=== PATIENT | male | born 1950 | race Caucasian/White ===

== ENCOUNTER 2022-06-21 11:51 | Emergency (ER) | payer OTHER, SELFPAY ==
[2022-06-21] VITALS (11 sets, daily range): BP systolic 158–159; BP diastolic 92–100; PULSE 62–70; RESP 12–24; TEMP 37; O2SAT 92–98; BMI 28.8
[2022-06-21 12:28] LABS: Add Manual Diff / Slide Review NO; Basophils Absolute Auto 100 /uL (0-100); Basophils Percent Auto 1.2 % (0-2); Eosinophils Absolute Auto 200 /uL (0-450); Eosinophils Percent Auto 4.6 % (2-4); Hematocrit 42.3 % (41-53); Hemoglobin 14.3 g/dL (13.5-17.5); Lymphocytes Absolute Auto 700 /uL (1100-4500); Lymphocytes Percent Auto 13.7 % (25-40); Mean Corpuscular HGB Conc 33.7 % (30-36); Mean Corpuscular Hemoglobin 32.1 PG (26-34); Mean Corpuscular Volume 95.3 fL (80-100); Monocytes Absolute Auto 600 /uL (0-900); Monocytes Percent Auto 13.1 % (3-14); Neutrophils Absolute Auto 3300 /uL (1500-7000); Neutrophils Percent Auto 67.4 % (50-75); Platelet Count 172 X10^3/uL (150-400); Red Blood Cell Count 4.44 X10^6/uL (4.5-5.9); Red Cell Distribution Width 15.9 % (11.6-14.8); White Blood Cell Count 4.9 X10^3/uL (4.5-11.0)
[2022-06-21 12:42] LABS: INR 1.1 (0.9-1.3); Prothrombin Time 12.7 SECONDS (10.1-12.7)
[2022-06-21 12:45] LABS: PTT Partial Thromboplastin Tim 38 SECONDS (26-36)
[2022-06-21 12:49] LABS: Alanine Aminotransferase 32 IU/L (<50); Albumin 4.2 g/dL (3.5-5.0); Albumin Globulin Ratio 1.2 (1.0-2.8); Alkaline Phosphatase 65 U/L (38-126); Aspartate Aminotransferase 34 IU/L (17-59); Bilirubin Total 0.6 mg/dL (0.2-1.3); Blood Urea Nitrogen 17 mg/dL (9-20); Calcium 9.1 mg/dL (8.4-10.2); Carbon Dioxide 28 mmol/L (22-32); Chloride 102 mmol/L (98-107); Estimated Glomerular Filt Rate > 60 mL/min (>60); Globulin 3.4 g/dL (1.7-4.1); Glucose 90 mg/dL (80-110); HEMOLYSIS < 15 (0-50); Sodium 139 mmol/L (137-145); Total Protein 7.6 g/dL (6.3-8.2)
--- NOTE | 2022-06-21 13:32 | ED_ITS ---
HPI - GI Bleed General Chief complaint: GI Bleed Stated complaint: gi bleed Time Seen by Provider: 06/21/22 13:31 Source: patient and family Mode of arrival: Ambulatory Limitations: no limitations History of Present Illness HPI Narrative: The patient had bloody BMs this morning x2. He has no weakness, palpitations, diaphoresis or abdominal pain. He is not anticoagulated. He has no history of GI bleeding. He has no history of gastritis, no histories of PUD. He did not have heavy yd work yesterday. He did take ibuprofen yesterday for body ache. He denies recent illness. He is no headache, no chest pain or palpitations. He is no cough or dyspnea. He is no illness with fever chills. He has no abdomin al pain, he is no urinary symptoms. He is currently asymptomatic, worried about the GI bleeding. Related Data Previous Rx's Medication Instructions Recorded pantoprazole 40 mg tablet,delayed 40 mg PO DAILY #30 tabs 06/21/22 release (Protonix) Allergies Allergy/AdvReac Type Severity Reaction Status Date / Time No Known Drug Allergies Allergy Verified 06/21/22 12:00 Review of Systems Review of Systems ROS Unobtainable: All systems reviewed & are unremarkable except as noted in HPI and below Patient History Medical History (Updated 06/21/22 @ 16:23 by Ruiz Mera MD) No chronic diseases present Social History Smoking Status: Former smoker Smoking Status: Former smoker alcohol intake frequency: a few times a week Substance Use Type: marijuana Exam Initial Vital Signs Initial Vital Signs: Vital Signs Temperature 98.6 F 06/21/22 12:00 Pulse Rate 65 06/21/22 12:00 Respiratory Rate 16 06/21/22 12:00 Blood Pressure 159/100 H 06/21/22 12:00 Pulse Oximetry 97 06/21/22 12:00 Oxygen Delivery Method Room Air 06/21/22 12:00 Const General: cooperative, healthy appearing, comfortable, well developed and well groomed Nutritional Appearance: average body habitus Orientation: Orientation (Normal.) HENMT Head: normal to inspection, normocephalic and atraumatic Mouth: oral mucosae normal Neck Thyroid: thyroid normal Chest Chest: normal inspection of the chest Resp Effort & Inspection: normal respiratory effort Auscultation: clear to auscultation bilaterally Cardio Rate: regular rate Rhythm: regular rhythm Heart Sounds: S1 normal, S2 normal and no murmurs GI Inspection: normal to inspection and non-distended Palpation: soft, No mass and No tender Auscultation: normal bowel sounds Rectal Exam: visual inspection normal, normal sphincter tone and prostate normal Other: Melena is present Back/Spine/Pelvis Back: normal to inspection and No CVA tenderness Thoracic/Lumbar Spine: thoracic and lumbar spine normal to inspection Skin General: no rashes or lesions noted Neuro General: patient alert, patient awake, patient oriented x3 and no focal motor deficits Extrem General: normal to inspection, full ROM and no pedal edema Psych Mental Status: mental status grossly normal Course Course Course Narrative: Patient has received IV Protonix. Exam reveals melena. Vitals are stable. He is shown no suggestion of acute GI bleeding. H&H is relatively stable. He probably has NSAID gastritis. He is an upper GI bleed. He is clinically stable, I do not suspect active bleeding. I reviewed the case with surgery, Dr. Jones. He agrees with outpatient follow-up for endoscopy/colonoscopy. Orders Ordered: ED Orders 06/21/22 12:22 Complete Blood Count AUTO DIFF Stat Comprehensive Metabolic Panel Stat Partial Thromboplastin Time Stat Prothrombin Time INR Stat Type and Screen Stat 06/21/22 12:56 EKG-12 Lead Stat 06/21/22 14:30 CBC Auto Diff [Complete Blood Count AUTO DIFF] Stat Discontinued Medications Ondansetron HCl (Ondansetron 4 Mg/2 Ml Inj) 4 mg IV NOW PRN PRN Reason: Nausea And Vomiting Ondansetron HCl (Ondansetron 4 Mg Odt) 4 mg SL NOW PRN PRN Reason: Nausea And Vomiting Pantoprazole Sodium (Pantoprazole 40 Mg Vial) 80 mg IV NOW ONE Stop: 06/21/22 12:07 Last Admin: 06/21/22 13:34 Dose: 80 mg Documented By: NILDA Vital Signs Vital signs: Vital Signs - 8 hr 06/21/22 12:00 06/21/22 13:08 06/21/22 13:09 Temperature 98.6 F Pulse Rate 65 63 Respiratory Rate 16 Blood Pressure 159/100 H 158/92 H Pulse Oximetry 97 97 Oxygen Delivery Method Room Air 06/21/22 13:09 06/21/22 13:30 06/21/22 14:00 Temperature Pulse Rate 62 63 65 Respiratory Rate 12 19 19 Blood Pressure Pulse Oximetry 98 97 96 Oxygen Delivery Method 06/21/22 14:30 06/21/22 15:00 06/21/22 15:30 Temperature Pulse Rate 62 65 69 Respiratory Rate 15 15 24 Blood Pressure Pulse Oximetry 96 96 92 Oxygen Delivery Method 06/21/22 16:00 06/21/22 16:30 06/21/22 16:51 Temperature Pulse Rate 62 68 Respiratory Rate 16 18 Blood Pressure 159/96 H Pulse Oximetry 95 96 Oxygen Delivery Method 06/21/22 16:51 Temperature Pulse Rate 70 Respiratory Rate 21 Blood Pressure Pulse Oximetry 97 Oxygen Delivery Method MDM - GI Bleed Lab Data 06/21/22 14:30 06/21/22 12:22 Labs: Lab Results 06/21/22 06/21/22 06/21/22 Range/Units 12:22 12:22 12:22 WBC 4.9 (4.5-11.0) X10^3/uL RBC 4.44 L (4.5-5.9) X10^6/uL Hgb 14.3 (13.5-17.5) g/dL Hct 42.3 (41-53) % MCV 95.3 (80-100) fL MCH 32.1 (26-34) PG MCHC 33.7 (30-36) % RDW 15.9 H (11.6-14.8) % Plt Count 172 (150-400) X10^3/uL Neut % (Auto) 67.4 (50-75) % Lymph % (Auto) 13.7 L (25-40) % [place] % (Auto) 13.1 (3-14) % Eos % (Auto) 4.6 H (2-4) % Baso % (Auto) 1.2 (0-2) % Neut # (Auto) 3300 (6739-4838) /uL Lymph # (Auto) 700 L (7118-4095) /uL [place] # (Auto) 600 (0-900) /uL Eos # (Auto) 200 (0-450) /uL Baso # (Auto) 100 (0-100) /uL PT 12.7 (10.1-12.7) SECONDS INR 1.1 (0.9-1.3) APTT 38 H (26-36) SECONDS Sodium 139 (137-145) mmol/L Potassium 4.0 (3.4-5.1) mmol/L Chloride 102 (98-107) mmol/L Carbon Dioxide 28 (22-32) mmol/L BUN 17 (9-20) mg/dL Creatinine 0.85 (0.66-1.25) mg/dL Estimated GFR > 60 (>60) mL/min BUN/Creatinine Ratio 20.0 (6-22) Glucose 90 (80-110) mg/dL Calcium 9.1 (8.4-10.2) mg/dL Total Bilirubin 0.6 (0.2-1.3) mg/dL AST 34 (17-59) IU/L ALT 32 (<50) IU/L Alkaline Phosphatase 65 (38-126) U/L Total Protein 7.6 (6.3-8.2) g/dL Albumin 4.2 (3.5-5.0) g/dL Globulin 3.4 (1.7-4.1) g/dL Albumin/Globulin Ratio 1.2 (1.0-2.8) Blood Type Antibody Screen 06/21/22 06/21/22 Range/Units 12:22 14:30 WBC 4.8 (4.5-11.0) X10^3/uL RBC 4.34 L (4.5-5.9) X10^6/uL Hgb 13.9 (13.5-17.5) g/dL Hct 41.0 (41-53) % MCV 94.3 (80-100) fL MCH 32.1 (26-34) PG MCHC 34.0 (30-36) % RDW 15.6 H (11.6-14.8) % Plt Count 167 (150-400) X10^3/uL Neut % (Auto) 68.8 (50-75) % Lymph % (Auto) 13.9 L (25-40) % Bailey % (Auto) 11.7 (3-14) % Eos % (Auto) 4.7 H (2-4) % Baso % (Auto) 0.9 (0-2) % Neut # (Auto) 3300 (3273-2903) /uL Lymph # (Auto) 700 L (1553-5384) /uL Bailey # (Auto) 600 (0-900) /uL Eos # (Auto) 200 (0-450) /uL Baso # (Auto) 0 (0-100) /uL PT (10.1-12.7) SECONDS INR (0.9-1.3) APTT (26-36) SECONDS Sodium (137-145) mmol/L Potassium (3.4-5.1) mmol/L Chloride (98-107) mmol/L Carbon Dioxide (22-32) mmol/L BUN (9-20) mg/dL Creatinine (0.66-1.25) mg/dL Estimated GFR (>60) mL/min BUN/Creatinine Ratio (6-22) Glucose (80-110) mg/dL Calcium (8.4-10.2) mg/dL Total Bilirubin (0.2-1.3) mg/dL AST (17-59) IU/L ALT (<50) IU/L Alkaline Phosphatase (38-126) U/L Total Protein (6.3-8.2) g/dL Albumin (3.5-5.0) g/dL Globulin (1.7-4.1) g/dL Albumin/Globulin Ratio (1.0-2.8) Blood Type A Negative Antibody Screen Negative Urine Dip Bedside Urine Glucose Negative Bedside Urine Bilirubin - Negative Bedside Urine Ketone - Negative Urine Specific [place] 1.015 Bedside Urine Occult Blood - Negative Bedside Urine pH 6.5 Bedside Urine Protein - Negative Bedside Urine Urobilinogen - Negative Bedside Urine Nitrite - Negative Bedside Urine Leukocytes - Negative Esterase ECG Data Attestation: I personally reviewed and interpreted this ECG as follows: (Normal sinus rhythm rate 63 beats per minute. Normal intervals. PVC. Nonspecific ST T wave changes. No acute findings.) Discharge Plan Departure Patient Disposition: Home Clinical Impression: Upper gastrointestinal hemorrhage Instructions: Gastrointestinal Bleeding Activity Restrictions/Additional Instructions: The bleeding is likely from the ibuprofen. Avoid ibuprofen, use Tylenol when needed for pain. Protonix 40 mg daily. Be sure you are drinking plenty of fluids at all times. I discussed her case with surgery, Dr. Jones, his office is in [place], [place]. He has agreed to see you in follow-up. You should undergo colonoscopy and endoscopy. Call his office for an appointment. If you developed significant increase in bleeding, return the ER. Prescriptions: New pantoprazole [Protonix] 40 mg tablet,delayed release (DR/EC) 40 mg PO DAILY Qty: 30 0RF Referrals: Miscellaneous,Doctor, MD [Primary Care Provider] - Stand Alone Forms: Patient Portal/API
[2022-06-21] MEDS: PANTOPRAZOLE 40 MG VIAL 80 MG IV (13:34)
[2022-06-21 14:34] LABS: Add Manual Diff / Slide Review NO; Basophils Absolute Auto 0 /uL (0-100); Basophils Percent Auto 0.9 % (0-2); Eosinophils Absolute Auto 200 /uL (0-450); Eosinophils Percent Auto 4.7 % (2-4); Hemoglobin 13.9 g/dL (13.5-17.5); Lymphocytes Absolute Auto 700 /uL (1100-4500); Lymphocytes Percent Auto 13.9 % (25-40); Mean Corpuscular Hemoglobin 32.1 PG (26-34); Mean Corpuscular Volume 94.3 fL (80-100); Monocytes Absolute Auto 600 /uL (0-900); Monocytes Percent Auto 11.7 % (3-14); Neutrophils Absolute Auto 3300 /uL (1500-7000); Neutrophils Percent Auto 68.8 % (50-75); Platelet Count 167 X10^3/uL (150-400); Red Blood Cell Count 4.34 X10^6/uL (4.5-5.9); Red Cell Distribution Width 15.6 % (11.6-14.8); White Blood Cell Count 4.8 X10^3/uL (4.5-11.0)
== END 2022-06-21 17:00 | disposition home or self-care (01) ==
PROVIDERS: Emergency Provider Emergency Medicine
DX: K92.2 Gastrointestinal hemorrhage, unspecified (principal)
CPT/HCPCS: 36415; 80053; 81003; 85025; 85610; 85730; 86850; 86900; 86901; 93005; 96374; 99284; C9113

== ENCOUNTER → 2022-07-17 09:59 | Outpatient (CLI) | payer OTHER, SELFPAY ==
--- NOTE | 2022-07-17 10:43 | DI.DEXA.S_ITS ---
Study: Bone densitometry was performed. Exam Date: July 17, 2022 Accession number: [id number] Bone Density: Region BMD T-score Z-score Classification AP Spine(L1-L4) 1.200 1.4 1.9 Normal Femoral Neck (Left) 0.674 -1.6 -0.7 Osteopenia Total Hip (Left) 0.924 -0.1 0.0 Normal Femoral Neck (Right) 0.732 -1.1 -0.2 Osteopenia Total Hip (Right) 0.892 -0.4 -0.2 Normal Total Hip Mean 0.908 -0.3 -0.1 Normal World Health Organization criteria for BMD impression classify patients as: Normal (T-score at or above -1.0), Osteopenia (T-score between -1.0 and -2.5), or Osteoporosis (T-score at or below -2.5). 10-year Fracture Risk(1): Major Osteoporotic Fracture 9.5% Hip Fracture 2.7% Reported Risk Factors: [place] (), Neck BMD=0.674, BMI=29.3, rheumatoid arthritis, secondary osteoporosis (1) FRAX(R) Version 3.08. Fracture probability calculated for an untreated patient. Fracture probability may be lower if the patient has received treatment. Impression: The patient has low bone mass, based on the Left Femoral Neck T-score. The patient has an estimated ten-year risk of hip fracture of 2.7% and an estimated ten-year risk of major fracture of 9.5%, based on the WHO FRAX algorithm. Discussion: BONE DENSITY IS LOW AT ONE OR MORE SKELETAL SITES. This patient's lowest T-score is low at one or more skeletal sites. It meets the World Health Organization's (WHO) criteria for ?low bone mass? (T-score between -1.0 and -2.5). The patient's 10-year risk of fracture as calculated by FRAX is less than the threshold where pharmacological therapy is recommended by the National Osteoporosis Foundation (NOF). However, all treatment decisions require clinical judgment and consideration of individual patient factors, including patient preferences, comorbidities, previous drug use, risk factors not captured in the FRAX model (e.g., frailty, falls, vitamin D deficiency, increased bone turnover, interval significant decline in bone density) and possible under or overestimation of fracture risk by FRAX. The patient should follow a healthful lifestyle (good nutrition with adequate calcium and vitamin D, and appropriate weight-bearing exercise). Follow-Up: Consider repeating this study in 2 to 3 years to reassess this patient's status, or sooner if there is some new clinical indication. Reported by: WINSTON NOGUERA MD on 07/17/2022 11:01:00 AM.
== END ==
PROVIDERS: PCP Internal Medicine; Referring Provider Internal Medicine; Visit Provider Internal Medicine
DX: M85.852 Other specified disorders of bone density and structure, left thigh (principal); M06.9 Rheumatoid arthritis, unspecified
CPT/HCPCS: 77080

== ENCOUNTER 2023-06-30 18:54 | Emergency (ER) | payer OTHER, SELFPAY ==
[2023-06-30 19:01] VITALS: BP 147/82; PULSE 72; RESP 16; TEMP 36.7; O2SAT 95; BMI 30.1
--- NOTE | 2023-06-30 19:04 | DI.US.S_ITS ---
PROCEDURE: US PERIPH VENOUS LOW EXTREM RT INDICATIONS: POSTOP LEG SWELLING TECHNIQUE: Real-time imaging, as well as color and pulse Doppler interrogation, were performed of the lower extremity deep veins from the inguinal ligament to the popliteal fossa, with documentation of the visualized calf veins. COMPARISON: None. FINDINGS: The common femoral, femoral, popliteal, and the visualized calf veins are normally compressible, and free of intraluminal thrombus. Color and pulse Doppler demonstrate normal phasic intraluminal flow. There is normal augmentation response to distal compression maneuver. IMPRESSION: No findings of lower extremity deep venous thrombosis. Dictated by: Zechariah Jensen M.D. on 06/30/2023 at 20:20 Approved by: Zechariah Jensen M.D. on 06/30/2023 at 20:20
--- NOTE | 2023-06-30 19:09 | ED.SKABFB ---
HPI - Skin/Abscess/Foreign Bdy General Chief complaint: Skin/Abscess/Foreign Body Stated complaint: post surgical swelling rt leg Time Seen by Provider: 06/30/23 18:58 Source: patient Mode of arrival: Family Vehicle History of Present Illness HPI narrative: 73-year-old male presents for right lower extremity swelling and redness, fevers x 3 days. Patient is status post right hip surgery at [facility] [address] Casillas. He states that he has been healing well at home up until symptoms started. He called the nursing line about his symptoms and they prescribed an antibiotic, which the patient states he was taking but he does not know the name of this medication. He was urged to come to the emergency department by his daughters. Denies numbness, weakness, tingling. Is ambulatory with a walker. Related Data Previous Rx's Medication Instructions Recorded pantoprazole 40 mg tablet,delayed 40 mg PO DAILY #30 tabs 06/21/22 release (Protonix) Allergies Allergy/AdvReac Type Severity Reaction Status Date / Time No Known Drug Allergies Allergy Verified 06/30/23 19:05 Review of Systems Review of Systems Narrative: Negative except as noted above Patient History Medical History No chronic diseases present Social History Smoking Status: Former smoker Smoking Status: Former smoker alcohol intake frequency: a few times a week Substance Use Type: marijuana Exam Initial Vital Signs Initial Vital Signs: Vital Signs Temperature 98.1 F 06/30/23 19:01 Pulse Rate 72 06/30/23 19:01 Respiratory Rate 16 06/30/23 19:01 Blood Pressure 147/82 H 06/30/23 19:01 Pulse Oximetry 95 06/30/23 19:01 Oxygen Delivery Method Room Air 06/30/23 19:01 Const: Awake, alert, no acute distress, nontoxic appearing Cardiac: regular rate, regular rhythm RESP: unlabored, clear bilaterally, no wheezing GI: Atraumatic, soft, nontender, nondistended, no rebound, no guarding MSK: 2+ pitting edema RLE, DP pulses 2+ bilat, sensation equal. Skin: surgical site clean, dry, intact, no erythma, no excessive warmth Neuro: AO x3, CN II-XII grossly intact, moves all extremities Course Orders Ordered: ED Orders 06/30/23 19:04 US periph venous low extrem rt Stat 06/30/23 19:21 CBC Auto Diff [Complete Blood Count AUTO DIFF] Stat CMP [Comprehensive Metabolic Panel] Stat Lactate (Lactic Acid) Stat PT [Prothrombin Time INR] Stat Respiratory Panel (Film Array) Stat 06/30/23 19:30 Blood Culture Stat Vital Signs Vital signs: Vital Signs - 8 hr 06/30/23 19:01 Temperature 98.1 F Pulse Rate 72 Respiratory Rate 16 Blood Pressure 147/82 H Pulse Oximetry 95 Oxygen Delivery Method Room Air MDM - Skin/Abscess/Foreign Bdy Differential Diagnosis Differential diagnosis: Likely abscess of skin or subcutaneous tissue, viral exanthem and dermatophytosis Lab Data 06/30/23 19:21 06/30/23 19:21 Labs: Lab Results 06/30/23 Range/Units 19:21 WBC 6.1 (4.5-11.0) X10^3/uL RBC 3.10 L (4.5-5.9) X10^6/uL Hgb 10.3 L (13.5-17.5) g/dL Hct 29.9 L (41-53) % MCV 96.6 (80-100) fL MCH 33.4 (26-34) PG MCHC 34.6 (30-36) % RDW 15.1 H (11.6-14.8) % Plt Count 228 (150-400) X10^3/uL Neut % (Auto) 69.4 (50-75) % Lymph % (Auto) 11.0 L (25-40) % [place] % (Auto) 14.8 H (3-14) % Eos % (Auto) 4.1 H (2-4) % Baso % (Auto) 0.7 (0-2) % Neut # (Auto) 4200 (6242-2160) /uL Lymph # (Auto) 700 L (4437-6837) /uL [place] # (Auto) 900 (0-900) /uL Eos # (Auto) 200 (0-450) /uL Baso # (Auto) 0 (0-100) /uL PT 11.9 (9.4-12.5) SECONDS INR 1.0 (0.9-1.3) Sodium 136 L (137-145) mmol/L Potassium 3.9 (3.4-5.1) mmol/L Chloride 106 (98-107) mmol/L Carbon Dioxide 29 (22-32) mmol/L BUN 16 (9-20) mg/dL Creatinine 1.08 (0.66-1.25) mg/dL Estimated GFR > 60 (>60) mL/min BUN/Creatinine Ratio 14.8 (6-22) Glucose 113 H (80-110) mg/dL Lactate 0.8 (0.7-2.1) mmol/L Calcium 8.6 (8.4-10.2) mg/dL Total Bilirubin 0.7 (0.2-1.3) mg/dL AST 39 (17-59) IU/L ALT 43 (<50) IU/L Alkaline Phosphatase 54 (38-126) U/L Total Protein 6.8 (6.3-8.2) g/dL Albumin 3.7 (3.5-5.0) g/dL Globulin 3.1 (1.7-4.1) g/dL Albumin/Globulin Ratio 1.2 (1.0-2.8) Chlamy pneumoniae PCR Not detected (Not Detect) Adenovirus (PCR) Not detected (Not Detect) B.parapertussis DNA PCR Not detected (Not Detecte) Coronavirus OC43 (PCR) Not detected (Not Detect) Coronavirus HKU1 (PCR) Not detected (Not Detect) Coronavirus 229E (PCR) Not detected (Not Detect) SARS-CoV-2 (PCR) Not detected (Not Detecte) Coronavirus NL63 (PCR) Not detected (Not Detect) Human Metapneumovir PCR Not detected (Not Detect) Influenza Type A (PCR) Not detected (Not Detect) Influenza Type B (PCR) Not detected (Not Detect) M. pneumoniae (PCR) Not detected (Not Detect) Parainfluenza 1 (PCR) Not detected (Not Detect) Parainfluenza 2 (PCR) Not detected (Not Detect) Parainfluenza 3 (PCR) Not detected (Not Detect) Parainfluenza 4 (PCR) Not detected (Not Detect) RSV (PCR) Not detected (Not Detect) Entero/Rhino (PCR) Not detected (Not Detect) Imaging Data US - DVT: Radiologist's Impression: PROCEDURE: US PERIPH VENOUS LOW EXTREM RT INDICATIONS: POSTOP LEG SWELLING TECHNIQUE: Real-time imaging, as well as color and pulse Doppler interrogation, were performed of the lower extremity deep veins from the inguinal ligament to the popliteal fossa, with documentation of the visualized calf veins. COMPARISON: None. FINDINGS: The common femoral, femoral, popliteal, and the visualized calf veins are normally compressible, and free of intraluminal thrombus. Color and pulse Doppler demonstrate normal phasic intraluminal flow. There is normal augmentation response to distal compression maneuver. IMPRESSION: No findings of lower extremity deep venous thrombosis. Dictated by: Zechariah Jensen M.D. on 06/30/2023 at 20:20 Approved by: Zechariah Jensen M.D. on 06/30/2023 at 20:20 MDM Narrative Medical decision making narrative: Swelling and reported fevers at home for 3 days, patient is nearly 1 month postop from hip surgery at outside hospital. Patient is afebrile on arrival, he denies taking any antipyretics including Tylenol or Motrin today. The right lower extremity is swollen when compared to the left lower extremity, however he has intact sensation and pulses. Surgical wound is clean, dry, appears to be very well healed, there was no warmth or fluctuance overlying the well-healed wound. Laboratory work is reviewed, WBC count 6.1. Patient has remained afebrile while in the emergency department. Ultrasound shows no acute DVT. Patient advised to wear compression stockings and to elevate his leg above heart level to help reduce swelling. Patient states that he has been told to do this by his in his daughters, but is stubborn and does not always do what they advised. Patient has scheduled follow up next week with his orthopedic surgeon, he was advised to keep this appointment and even though I do not strongly suspected infection to finish the antibiotics he has been prescribed. ED return precautions discussed at bedside. Patient expressed understanding of the plan and is in agreement at this time. All questions answered at the time of discharge. Discharge Plan Departure Patient Disposition: Home Clinical Impression: Right leg swelling Instructions: DI for Peripheral Edema-Unilateral Activity Restrictions/Additional Instructions: Wear compression stockings and elevate your right leg when at rest. There is no evidence of bloodstream infection or blood clot at this time. Please follow up with your orthopedic doctor for further management of your hip surgery. Your incision looks clean, and like it is healing well. Prescriptions: No Action pantoprazole [Protonix] 40 mg tablet,delayed release (DR/EC) 40 mg PO DAILY Qty: 30 0RF Referrals: Park Malave MD [Primary Care Provider] - Stand Alone Forms: Patient Portal/API
[2023-06-30 19:29] LABS: Add Manual Diff / Slide Review NO; Basophils Absolute Auto 0 /uL (0-100); Basophils Percent Auto 0.7 % (0-2); Eosinophils Absolute Auto 200 /uL (0-450); Eosinophils Percent Auto 4.1 % (2-4); Hematocrit 29.9 % (41-53); Hemoglobin 10.3 g/dL (13.5-17.5); Lymphocytes Absolute Auto 700 /uL (1100-4500); Mean Corpuscular HGB Conc 34.6 % (30-36); Mean Corpuscular Hemoglobin 33.4 PG (26-34); Mean Corpuscular Volume 96.6 fL (80-100); Monocytes Absolute Auto 900 /uL (0-900); Monocytes Percent Auto 14.8 % (3-14); Neutrophils Absolute Auto 4200 /uL (1500-7000); Neutrophils Percent Auto 69.4 % (50-75); Platelet Count 228 X10^3/uL (150-400); Red Cell Distribution Width 15.1 % (11.6-14.8); White Blood Cell Count 6.1 X10^3/uL (4.5-11.0)
[2023-06-30 19:35] LABS: Prothrombin Time 11.9 SECONDS (9.4-12.5)
[2023-06-30 19:39] LABS: Lactate (Lactic Acid) 0.8 mmol/L (0.7-2.1)
[2023-06-30 19:40] LABS: Alanine Aminotransferase 43 IU/L (<50); Albumin 3.7 g/dL (3.5-5.0); Albumin Globulin Ratio 1.2 (1.0-2.8); Alkaline Phosphatase 54 U/L (38-126); Aspartate Aminotransferase 39 IU/L (17-59); BUN Creatinine Ratio 14.8 (6-22); Bilirubin Total 0.7 mg/dL (0.2-1.3); Blood Urea Nitrogen 16 mg/dL (9-20); Calcium 8.6 mg/dL (8.4-10.2); Carbon Dioxide 29 mmol/L (22-32); Chloride 106 mmol/L (98-107); Estimated Glomerular Filt Rate > 60 mL/min (>60); Globulin 3.1 g/dL (1.7-4.1); Glucose 113 mg/dL (80-110); HEMOLYSIS < 15 (0-50); Potassium 3.9 mmol/L (3.4-5.1); Sodium 136 mmol/L (137-145); Total Protein 6.8 g/dL (6.3-8.2)
[2023-06-30 20:17] LABS: Adenovirus Not Detected (Not Detect); B. parapertussis Not Detected (Not Detecte); Bordetella pertussis Not Detected (Not Detect); Chlamydophila pneumoniae Not Detected (Not Detect); Coronavirus 229E Not Detected (Not Detect); Coronavirus HKU1 Not Detected (Not Detect); Coronavirus NL 63 Not Detected (Not Detect); Coronavirus OC43 Not Detected (Not Detect); Human Metapneumovirus Not Detected (Not Detect); Human Rhinovirus/Enterovirus Not Detected (Not Detect); Influenza A Not Detected (Not Detect); Influenza B Not Detected (Not Detect); Mycoplasma pneumoniae Not Detected (Not Detect); Parainfluenza Virus 1 Not Detected (Not Detect); Parainfluenza Virus 2 Not Detected (Not Detect); Parainfluenza Virus 3 Not Detected (Not Detect); Parainfluenza Virus 4 Not Detected (Not Detect); Respiratory Syncytial Virus Not Detected (Not Detect); SARS- CoV-2 Not Detected (Not Detecte)
[2023-06-30 20:42] VITALS: BP 172/74; PULSE 77; RESP 18; TEMP 36.8; O2SAT 96
--- NOTE | 2023-06-30 20:43 | PC.NURSE ---
DIRECTOR UTILIZATION MANAGEMENT note: D/Chang patient's right AC IV. Used 2 packets of 2x2 gauze and two wrap around arm of coban. IV catheter tip came out clean and intact. GIANA Palomino aware.
== END 2023-06-30 20:44 | disposition home or self-care (01) ==
PROVIDERS: Emergency Provider Emergency Medicine; PCP Internal Medicine
DX: R60.0 Localized edema (principal); R50.9 Fever, unspecified; Z98.890 Other specified postprocedural states
CPT/HCPCS: 36415; 80053; 83605; 85025; 85610; 87040; 87633; 93971; 99284

== ENCOUNTER 2024-03-26 10:28 | Emergency (ER) | payer OTHER, SELFPAY ==
[2024-03-26 10:36] VITALS: BP 116/82; PULSE 65; RESP 18; TEMP 36.4; O2SAT 97; BMI 28.3
--- NOTE | 2024-03-26 11:09 | ED.SKABFB ---
HPI - Skin/Abscess/Foreign Bdy <Abigail Jo PA-C - Last Filed: 03/26/24 11:46> General Chief complaint: Skin/Abscess/Foreign Body Stated complaint: Spider right wrist Time Seen by Provider: 03/26/24 11:03 Source: patient Mode of arrival: Ambulatory Limitations: no limitations History of Present Illness HPI narrative: 74-year-old patient history of lung cancer (5 yrs clear) presents with concern for a nonhealing lesion on his right wrist that has been present since February 21 a little over a month ago. Patient states he 1st noticed a small bump there that was itchy and assumes that it started as a spider bite or possibly a mosquito bite. He says initially there was no scab it was simply a slightly raised pink area that was itchy. He does not remember anything abnormal of his skin in this location prior to this. He states he has been doing his best to avoid messing with it and not scratching it and feels he has been doing a pretty good job with this but despite that it is not healing. He does state in the last few years he feels like he heals more slowly but acknowledges it is a little unusual for it not to heal after 1 month. He keeps it covered with a Band-Aid at night. He has tried Neosporin. His asked him to come in for further evaluation as she was concerned the redness around the scab is expanding. Patient denies fevers chills or any other complaints or concerns. Related Data Previous Rx's Medication Instructions Recorded pantoprazole 40 mg tablet,delayed 40 mg PO DAILY #30 tabs 06/21/22 release (Protonix) cephalexin 500 mg capsule 500 mg PO Q8H 7 days #21 caps 03/26/24 Allergies Allergy/AdvReac Type Severity Reaction Status Date / Time No Known Drug Allergies Allergy Verified 03/26/24 10:39 Review of Systems <Abigail Jo PA-C - Last Filed: 03/26/24 11:46> Review of Systems Narrative: See HPI Patient History <Abigail Jo PA-C - Last Filed: 03/26/24 11:46> Medical History No chronic diseases present Social History Smoking Status: Former smoker Smoking Status: Former smoker alcohol intake frequency: a few times a week Substance Use Type: marijuana Exam <Abigail Jo PA-C - Last Filed: 03/26/24 11:46> Narrative Exam Narrative: GENERAL: [74] year old patient appears stated age. Well-developed patient, in mild distress. HEAD: Atraumatic. Normocephalic. EYES: Pupils equal round and reactive. Extraocular motions intact. No scleral icterus. No injection or drainage. ENT: Nose without bleeding, purulent drainage. Airway patent. NECK: Trachea midline. CARDIOVASCULAR: Regular rate and rhythm without murmurs, gallops, or rubs. RESPIRATORY: Clear to auscultation. Breath sounds equal bilaterally. No wheezes, rales, or rhonchi. GASTROINTESTINAL: Abdomen soft, non-tender, nondistended. EXTREMITIES: See skin moving all extremities normal gait. NEURO: AOx3. SKIN: On the right posterior wrist over the distal ulna there is a 0.5 cm scabbed area with surrounding erythema it is slightly raised and tender. There is no prominent heat noted. No other rash or erythema of visible areas Initial Vital Signs Initial Vital Signs: Vital Signs Temperature 97.6 F 03/26/24 10:36 Pulse Rate 65 03/26/24 10:36 Respiratory Rate 18 03/26/24 10:36 Blood Pressure 116/82 03/26/24 10:36 Pulse Oximetry 97 03/26/24 10:36 Oxygen Delivery Method Room Air 03/26/24 10:36 <Meryl Fenton MD - Last Filed: 03/27/24 07:12> Initial Vital Signs Initial Vital Signs: Vital Signs Temperature 97.6 F 03/26/24 10:36 Pulse Rate 65 03/26/24 10:36 Respiratory Rate 18 03/26/24 10:36 Blood Pressure 116/82 03/26/24 10:36 Pulse Oximetry 97 03/26/24 10:36 Oxygen Delivery Method Room Air 03/26/24 10:36 Course <Abigail Jo PA-C - Last Filed: 03/26/24 11:46> Vital Signs Vital signs: Vital Signs - 8 hr 03/26/24 10:36 Temperature 97.6 F Pulse Rate 65 Respiratory Rate 18 Blood Pressure 116/82 Pulse Oximetry 97 Oxygen Delivery Method Room Air <Meryl Fenton MD - Last Filed: 03/27/24 07:12> Vital Signs Vital signs: Vital Signs - 8 hr 03/26/24 10:36 Temperature 97.6 F Pulse Rate 65 Respiratory Rate 18 Blood Pressure 116/82 Pulse Oximetry 97 Oxygen Delivery Method Room Air MDM - Skin/Abscess/Foreign Bdy <Abigail Jo PA-C - Last Filed: 03/26/24 11:46> Differential Diagnosis Differential diagnosis: Likely abscess of skin or subcutaneous tissue, insect bites and other (non-healing skin lesion, skin cancer) Medical Records Attestation: I reviewed the patient's medical records. [facility] Narrative Medical decision making narrative: This is a well-appearing 74-year-old male with a history of lung cancer 5 years clear presenting with concern for a poorly healing possible spider bite on his right wrist over the distal ulna. Present for 1 month. Exam is quite possibly suggestive of a poorly healing insect bite however a atypical skin lesion is also a possibility. We will place the patient on a course of antibiotics (cephalexin) for 7 days. Patient was advised that if his symptoms do not improve or the lesion is still present within 2 weeks' time he should see his primary care provider or automatic profile shaper operator soon as possible for a biopsy and further evaluation. He is in agreement with this plan. Return precautions provided, follow-up plan discussed, all questions answered. Discharge Plan Departure Patient Disposition: Home Clinical Impression: Arm skin lesion, right Activity Restrictions/Additional Instructions: *You have been diagnosed with [skin lesion] *What to do: *Please continue to take your regular medications as directed. [ 1] New medication prescriptions sent to your pharmacy: [Cephalexin] [ ] New medication written as a paper prescription [ ] No new medications given *Please follow up with your primary care provider in 2-3 days, call for an appointment. Let them know you were seen in the Emergency Department and that we ask that you be seen in follow up. We will electronically transmit a record of today's note if your PCP is in our system. You came into the emergency department with concern for a poorly healing insect bite that has been present for over a month. It is certainly possible that this is the cause of the lesion on your arm and I have prescribed a 7 day course of antibiotics. If it does not get better with the antibiotics or you find that the lesion is still present within 2 weeks' time I do strongly recommend that you see your primary care provider or a automatic profile shaper operator and have this biopsied; as it should have healed by that time and or improve with the antibiotics if it is indeed an insect bite. I hope this resolves for you soon and you are feeling better. *If you do not have a primary care provider please contact the [facility] Resource line at [phone]. They will ask some questions about your medical history and help get you set up with a doctor in the community. *Return to Emergency Department if you should have any new, worsening or concerning symptoms, such as [fever greater than 101 F, shaking chills, worsening pain, persistent vomiting or other bothersome symptoms] Prescriptions: New cephalexin 500 mg capsule 500 mg PO Q8H 7 Days Qty: 21 0RF No Action pantoprazole [Protonix] 40 mg tablet,delayed release (DR/EC) 40 mg PO DAILY Qty: 30 0RF Referrals: Park Malave MD [Primary Care Provider] - Stand Alone Forms: Patient Portal/API/Survey ED Sign-out <Meryl Fenton MD - Last Filed: 03/27/24 07:12> Cosign ED Attending Cosignature Attestation: I was immediately available in the department for consultation throughout this patient's visit. Meryl Fenton MD
== END 2024-03-26 11:45 | disposition home or self-care (01) ==
PROVIDERS: Emergency Provider Student in an Organized Health Care Education/Training Program; PCP Internal Medicine
DX: L98.9 Disorder of the skin and subcutaneous tissue, unspecified (principal)
CPT/HCPCS: 99281

== ENCOUNTER → 2024-11-14 10:06 | Outpatient (CLI) | payer OTHER, SELFPAY ==
--- NOTE | 2024-11-14 10:07 | DI.NM.S_ITS ---
PROCEDURE: NM BONE SCAN WHOLE BODY RADIOPHARMACEUTICAL: 21.8 mCi Tc-99m MDP IV. INDICATIONS: ENCOUNTER FOR OTHER SPECIFIED SPECIAL EXAM TECHNIQUE: Delayed whole-body scintigrams were obtained approximately 3-4 hours after intravenous injection of radiotracer. Anterior and posterior views were acquired from vertex to feet. Additional left and right oblique views of the pelvis and chest were obtained. COMPARISON: None. FINDINGS: Urinary excretion is seen in the kidneys and bladder. Mild focal radiotracer uptake is seen in the right posterior 10th rib. Slightly asymmetric uptake also seen projecting over the right nodes. Upper and lower extremity degenerative changes are seen. Mild focal uptake seen in the left upper lumbar spine. IMPRESSION: Indeterminate focus of uptake in the right posterior 10th rib. This could represent a fracture or underlying lesion. Nonspecific mild uptake also seen in the right upper lumbar spine and right nose. These could be degenerative/posttraumatic, though underlying lesion remains possible as well. Consider correlation with CT or MRI to further evaluate if clinically indicated No high suspicion focus of uptake elsewhere. Dictated by: Chris Joshua M.D. on 11/14/2024 at 15:34 Approved by: Chris Joshua M.D. on 11/14/2024 at 15:37
== END ==
PROVIDERS: PCP Internal Medicine; Referring Provider Family Medicine; Visit Provider Family Medicine
DX: Z01.89 Encounter for other specified special examinations (principal)
CPT/HCPCS: 78306; A9503

== ENCOUNTER → 2024-11-17 13:44 | Outpatient (CLI) | payer OTHER, SELFPAY ==
--- NOTE | 2024-11-17 13:46 | DI.ECHO.S_ITS ---
[place] [facility] : : [address] : : [place] : : [id number] : : Phone: [phone] Echocardiogram Report + + :Name: RUDY MEYER Study Date: 11/17/2024 Height: 71 in : :Hospital ReadingLocation: Weight: 190 lb : : Gender: Male BSA: 2.1 m2 : :: 1950 Age: 74 yrs BP: 117/75 mmHg: :Reason For Study: CARDIOMYOPATHY : :Ordering Physician: EZEQUIEL, : :JENISE Ann Performed By: Jenna De La Rosa : :Referring: JENISE NIEVES W : + + Interpretation Summary The left ventricle is normal in size. The ejection fraction is estimated to be 40-45%. Previous LVEF 45 to 50% Hypokinetic inferior wall, base to mid inferior lateral wall. No significant change. Pseudonormalization type of diastolic dysfunction with diastolic parameters suggest probable elevated filling pressures. The right ventricle is moderately dilated. Right ventricular systolic function is at the lower limits of normal. Mitral valve repair. The mitral valve mean gradient is 3.3 mmHg. No significant mitral valve stenosis. There is mild mitral regurgitation. There is mild tricuspid regurgitation. The right ventricular systolic pressure is estimated to be at least 28 mmHg based on an estimated right atrial pressure of 3 mm Hg. Procedure: A two-dimensional transthoracic echocardiogram with color flow and Doppler was performed. The study quality was technically adequate. Comparison is made with the echocardiogram of 12/18/2023. The heart rate ranged between 48-64 bpm during the study. The patient was in normal sinus rhythm during the exam. The patient had frequent PVCs during the exam. Left Ventricle: The left ventricle is normal in size. There is normal left ventricular wall thickness. There is no thrombus. The ejection fraction is estimated to be 40-45%. There is inferior wall hypokinesis. Hypokinetic inferior wall, base to mid inferior lateral wall. No significant change. Septal motion is consistent with post-operative state. Septal motion is consistent with conduction abnormality. MV E/A: 1.2 Med Peak E' Chaz: 4.0 cm/sec E/E' med: 32.7. Diastolic parameters suggest probable elevated filling pressures. Right Ventricle: The right ventricle is moderately dilated. Right ventricular systolic function is at the lower limits of normal. Atria: The left atrium is mildly dilated. The left atrium has mildly increased in size since the prior echo exam. Right atrial size is normal. There is no Doppler evidence for an interatrial shunt. Mitral Valve: Mitral valve repair. The mitral valve mean gradient is 3.3 mmHg. No significant mitral valve stenosis. There is mild mitral regurgitation. Aortic Valve: The aortic valve is trileaflet. The aortic valve opens well. There is no aortic valve stenosis. No aortic regurgitation is present. Tricuspid Valve: The tricuspid valve leaflets are thin and pliable. There is mild tricuspid regurgitation. The right ventricular systolic pressure is estimated to be at least 28 mmHg based on an estimated right atrial pressure of 3 mm Hg. Pulmonic Valve: The pulmonic valve leaflets are thin and pliable; valve motion is normal. There is no pulmonic valvular regurgitation. Great Vessels: The aortic root is normal size. The dimensions of the ascending aorta are normal. The IVC is of normal diameter and collapses greater than 50% with a sniff. This suggests a low right atrial pressure of 3 mm Hg. Pericardium/ Pleura There is a trivial pericardial effusion noted. There is no pleural effusion. MMode/2D Measurements & Calculations LVIDd: 5.2 cm LVOT diam: 2.4 cm LVIDs: 4.2 cm Ao root diam: 3.7 cm FS: 20.1 % asc Aorta Diam: 3.6 cm EPSS: 1.1 cm Ao Arch Diam (Prox Trans): 3.5 cm IVSd: 0.83 cm LVPWd: 0.88 cm LV miles. diameter/BSA (cm/m^2): 2.5 LV sys. diameter/BSA (cm/m^2): 2.0 LA A2 area: 26.1 cm2 RA long axis: 5.2 cm LA A4 area: 23.4 cm2 RA area: 19.6 cm2 LA length (vol): 6.4 cm RA vol: 63.4 ml LA vol: 80.7 ml RA : 30.7 ml/m2 LA vol index: 39.1 ml/m2 IVC diam: 1.6 cm RVD1 (basal): 5.4 cm RVD2 (mid): 5.3 cm TAPSE: 1.7 cm Doppler Measurements & Calculations Ao V2 max: 148.5 cm/sec LVOT Max Chaz: 114.9 cm/sec Ao V2 mean: 101.5 cm/sec LV V1 max P.3 mmHg Ao max P.8 mmHg LV V1 VTI: 24.0 cm Ao mean P.7 mmHg JACEY(I,D): 3.2 cm2 Ao V2 VTI: 32.2 cm JACEY(V,D): 3.4 cm2 sev ratio: 0.74 JACEY indexed to BSA (cm^2/m^2): 1.6 MV E max chaz: 131.4 cm/sec TR max chaz: 248.7 cm/sec MV A max chaz: 106.5 cm/sec TR max P.7 mmHg MV E/A: 1.2 PA V2 max: 99.7 cm/sec Med Peak E' Chaz: 4.0 cm/sec PA V2 mean: 63.1 cm/sec E/E' med: 32.7 PA mean P.8 mmHg Lat Peak E' Chaz: 10.7 cm/sec PA pr(Accel): 30.6 mmHg E/E' lat: 12.2 E/e' average: 22.5 MV dec time: 0.29 sec MVA(VTI): 1.8 cm2 MV V2 mean: 82.9 cm/sec SV(LVOT): 104.0 ml MV mean P.3 mmHg MV V2 VTI: 57.0 cm Reading Physician:06:09 PM
== END ==
PROVIDERS: PCP Family Medicine; Referring Provider Nurse Practitioner; Visit Provider Nurse Practitioner
DX: I08.1 Rheumatic disorders of both mitral and tricuspid valves (principal); I42.9 Cardiomyopathy, unspecified; Z98.890 Other specified postprocedural states
CPT/HCPCS: 93306